=== PATIENT | male | born 1985 | race Hispanic/Latino ===

== ENCOUNTER 2016-08-22 04:16 | Inpatient (IN) | payer MEDICAID ==
[2016-08-22 04:26] VITALS: O2SAT 100
--- NOTE | 2016-08-22 04:32 | ED PDOC ---
Psych Transfer Clearance - Clearance Statement Clearance Statement: Reviewed vital signs, lab results and transfer papers. Patient clinically stable for psychiatric admission.
[2016-08-22] MEDS ORDERED: DiphenhydrAMINE 50 mg/ml Inj IM PRN (04:49)
[2016-08-22] MEDS ORDERED: Magnesium Hydroxide Susp 30 ml UD PO PRN (04:49)
[2016-08-22] MEDS ORDERED: Alum-Mag Hydrox-Simethicone Susp (30 mL) PO PRN (04:49)
[2016-08-22 05:11] VITALS: RESP 18
[2016-08-22 05:35] VITALS: TEMP 97.2
[2016-08-22 06:43] LABS: HDL CHOLESTEROL 49 MG/DL (30-70)
[2016-08-22 06:54] LABS: LDL CHOLESTEROL 86 mg/dL (0-129)
[2016-08-22] MEDS ORDERED: Multivitamin With Minerals Tab PO SCH (09:00)
[2016-08-22 10:34] VITALS: BP 129/69; PULSE 82
--- NOTE | 2016-08-22 14:18 | PCM.PSYCH ---
Initial Psychiatric Evaluation - Initial Psychiatric Evaluation Type of Admission: Voluntary Legal Status: Capacity Chief Complaint (in patient's own words): i want to leave Patient's Reaction to Hospitalization: wants to leave History of Present Illness and Precipitating Events: pt with [facility], rehab and inpt admits. he is with a history of heroin dependence and he states "i don't have a mental illness, but every junky knows to say they have mental illness to get help." pt states he would not have come to this unit if he knew there was no suboxone here. he states "i don't know why i had to come all the way here for this!" pt is asking to leave. he states he will take care of his own housing and aftercare. he states he understands that he took too much heroin and states he does not want to kill himself. he denies psychotic symptoms. he does endorse diarrhea, cramps, chills, feeling restless, uncomfortable. he denies any thought to harm self. he refuses to be referred to a detox program. he is pleasant and cooperative with his treatment team today, but politely insists on leaving the hospital. Past Psychiatric History - Past Psychiatric History Previous Treatment History: Inpatient Prior Professional Help: multiple admits- [facility] in [place], [facility], [facility] History of Abuse: denies History of ETOH/Drug Use: uses 6 bags of heroin. states he snorted and did not use iv like he usually did. minimizing other substance use. he state his main drug is heroin History of Family Illness: denies Pertinent Medical Hx (Current Medical&Sleep Prob, Allergies): Allergies Allergy/AdvReac Type Severity Reaction Status Date / Time Penicillins Allergy RASH Verified 08/22/16 05:40 Ibuprofen [Motrin Tab] 800 mg PO Q6 PRN tab 08/22/16 Multimineral/Multivitamin [Therapeutic-M Tab] 1 tab PO DAILY tab 08/22/16 Review of Systems - Psychiatric Psychiatric: As Per HPI (denies any depression, suicidial or homicidal thoughts) Mental Status Examination - Personal Presentation Personal Presentation: Looks stated age - Affect Affect: Broad - Motor Activity Motor Activity: Calm - Reliability in Providing Information Reliability in Providing Information: Good - Speech Speech: Organized - Mood Mood: Anxious (regarding discharge) - Formal Thought Process Formal Thought Process: No Impairment Additional comments: denies a/v hallucinations - Obsessions/Compulsions Obsessions: No Compulsions: No - Cognitive Functions Orientation: Person, Place, Situation, Time Sensorium: Alert Attention/Concentration: Attentive Abstract Thinking: Lane Estimate of Intelligence: Average Judgement: Intact, as evidence by: Insight regarding need for hospitalization Memory: Recent intact, as evidence by: Ability to recall events of the day, Remote intact, as evidenced by: Abilit to recall sig. life events - Risk Risk: Suicidal (denies si/hi. states he lied about si to get admitted), Withdrawal - Strength & Assets Inventory Strength & Assets Inventory: Intelligence - Limitations Limitations: Other (legal stressors- "[place]") DSM 5 DX - DSM 5 DSM 5 Diagnosis: opioid dependence mood disorder unspecified - Recommended/Plan of Treatment Treatment Recommendations and Plan of Treatment: discharge home pt to arrange his own follow up pt refused offers to refer to treatment pt made aware of risk of overdose with heroin after stopping use pt is denying any suicidal or homicidal thoughts no scripts given Projected ELOS: 1 day Prognosis: guarded Discharge Plan and Discharge Criteria: discharge home
--- NOTE | 2016-08-22 14:24 | PCM.PYCHDC ---
Mental Status Examination - Mental Status Examination Suicidal Ideation: No Current Homicidal Ideation?: No Plan: see mse from admission assessment. denies any suicidal thoughts. Discharge Summary - Discharge Note Reason for Hospitalization: "i lied to get detoxed Psychiatric History (includes Medical, Family, Personal Hx): history of opioid dependence Laboratory Data: Abnormal Lab Results 08/22/16 06:00 Triglycerides 56 Cholesterol 162 LDL Cholesterol Direct 86 HDL Cholesterol 49 Consultations:: List each consultation separately and include: 1. Reason for request. 2. Findings. 3. Follow-up Summary of Hospital Course include:: 1. Description of specific treatment plan utilized for patients during their course of treatmen. 2. Summarize the time- course for resolution of acute symptoms and/or regressed behaviors. 3. Describe issues identified and worked on during hospitalization. 4. Describe medication utilized. 5. Describe medical problems identified and treated. 6. Reassessment of suicide risk Summary of Hospital Course: pt with [facility] detox, rehab and inpt admits. he is with a history of heroin dependence and he states "i don't have a mental illness, but every junky knows to say they have mental illness to get help." pt states he would not have come to this unit if he knew there was no suboxone here. he states "i don't know why i had to come all the way here for this!" pt is asking to leave. he states he will take care of his own housing and aftercare. he states he understands that he took too much heroin and states he does not want to kill himself. he denies psychotic symptoms. he does endorse diarrhea, cramps, chills, feeling restless, uncomfortable. he denies any thought to harm self. he refuses to be referred to a detox program. he is pleasant and cooperative with his treatment team today, but politely insists on leaving the hospital. - Final Diagnosis (DSM 5) Condition upon Discharge: GOOD DSM 5: opioid dependence Disposition: HOME/ ROUTINE Follow-up Treatment Plan: discharge home pt to arrange his own follow up pt refused offers to refer to treatment pt made aware of risk of overdose with heroin after stopping use pt is denying any suicidal or homicidal thoughts no scripts given pt encouraged to attend aa/na meetings daily encouraged to call 911 if any suicidal or homicidal thoughts - Smoking Cessation Smoking Cessation Medication prescribed: No Reason for not providing: declines - Antipsychotic Medications Pt discharged on 2 or more routine antipsychotic medications: No
== END 2016-08-22 12:29 | disposition home or self-care (01) | DRG 745 ==
LOC: H.ER 04:16 → H.PSYCH 04:31
PROVIDERS: ADMIT Psychiatry & Neurology Psychiatry; ATTEND Psychiatry & Neurology Psychiatry
DX: F11.20 Opioid dependence, uncomplicated (principal); Z88.0 Allergy status to penicillin